=== PATIENT | male | born 1955 | race Caucasian/White ===

== ENCOUNTER → 2023-11-02 10:12 | Outpatient (REF) | payer MEDICARE, OTHER, SELFPAY | LOC: RAD 10:12 | PROVIDERS: ATTENDING PHYSICIAN Family Medicine | DX: S23.9XXA Sprain of unspecified parts of thorax, initial encounter (principal) | CPT/HCPCS: 72072 ==

== ENCOUNTER → 2024-04-19 07:55 | Outpatient (REF) | payer MEDICARE, OTHER, SELFPAY | LOC: RCS 07:55 | PROVIDERS: ATTENDING PHYSICIAN Internal Medicine Cardiovascular Disease; FAMILY PHYSICIAN Family Medicine | DX: I50.22 Chronic systolic (congestive) heart failure (principal) | CPT/HCPCS: 93307; Q9957 ==